=== PATIENT | male | born 1940 | race Caucasian/White ===

== ENCOUNTER 2021-06-21 08:36 | Inpatient (IN) ==
[2021-06-21] MEDS ORDERED: levoFLOXacin 500 MG/100 ML 500 MG/100 ML BAG IVPB ONE (09:02)
[2021-06-21] MEDS ORDERED: Ringers Solution, Lactated 1,000 ML IVC SCH (09:15)
[2021-06-21] MEDS ORDERED: 0.9 % Sodium Chloride 500 ML IVC SCH (09:45)
[2021-06-21] MEDS ORDERED: Ondansetron 4 MG/2 ML VIAL IVP PRN ×2 (09:46→16:46)
[2021-06-21] MEDS ORDERED: *HR* Propofol 200 MG/20 ML VIAL IVP ONE (10:22)
[2021-06-21] MEDS ORDERED: *HR* Rocuronium Bromide 50 MG/5 ML VIAL ONE ×3 (10:22→14:11)
[2021-06-21] MEDS ORDERED: Ondansetron 4 MG/2 ML VIAL ONE (10:22)
[2021-06-21] MEDS ORDERED: Lidocaine HCL 4 ML Topical Solution (Laryng-O-Jet Kit Sterile Pak) TP ONE (10:22)
[2021-06-21] MEDS ORDERED: Lidocaine -MPF 2% 2 ML VIAL ONE (10:22)
[2021-06-21] MEDS ORDERED: *HR* FentaNYL (PF) 100 MCG/2 ML VIAL ONE ×2 (10:23→11:21)
[2021-06-21] MEDS ORDERED: Bupivacaine/EPI 1:200k 0.25% 50 ML VIAL ONE (10:31)
[2021-06-21] MEDS ORDERED: EPHEDrine 50 MG/ML VIAL ONE (11:07)
[2021-06-21] MEDS: *HR* HYDROmorphone PF 0.5 MG/0.5 ML SYRINGE IVP PRN ×2 (15:26→15:36)
[2021-06-21] MEDS ORDERED: *HR* Belladonna Alkaloids/Opium 30 MG RECTAL SUPPOSITORY RC PRN (16:46)
[2021-06-21] MEDS ORDERED: Dextrose Gel 15 GM/37.5 ML TUBE PO PRN ×2 (16:46)
[2021-06-21] MEDS ORDERED: *HR* OxyCODONE Immed Rel 5 MG TABLET PO PRN (16:46)
[2021-06-21] MEDS ORDERED: *HR* HYDROcodone/Acet 5/325 mg TABLET PO PRN (16:46)
[2021-06-21] MEDS ORDERED: D5% in Water 1,000 ML IVC PRN (16:46)
[2021-06-21] MEDS ORDERED: Naloxone 0.4 MG/ML INJ IVP PRN (16:46)
[2021-06-21] MEDS ORDERED: *HR* Dextrose 50 % in Water (Syg) 50 ML SYRINGE IVP PRN (16:46)
[2021-06-21] MEDS: Acetaminophen IV 1,000 MG/100 ML BAG IVPB SCH ×2 (17:40→23:17)
[2021-06-21] MEDS: CeFAZolin 2 GM/120 ML BAG IVPB SCH (17:40)
[2021-06-21] MEDS: 0.9 % Sodium Chloride 1,000 ML IVC SCH (17:43)
[2021-06-21] MEDS: Insulin LISPRO 300 UNITS/3 ML VIAL SUBQ SCH (18:05)
[2021-06-22 01:04] LABS: Basophils % 0.1 %; Hematocrit 36.6 % (37.5-50.1); Hemoglobin 12.4 g/dL (12.9-16.9); Immature Granulocytes % 0.4 % (0-4); Lymphocytes # 0.6 K/mcL (0.6-4.6); Mean Corpuscular HGB Conc 33.9 g/dL (31.6-35.5); Mean Corpuscular Volume 88.4 fL (83.0-100.0); Mean Platelet Volume 9.6 fL (9.4-12.4); Monocytes # 0.6 K/mcL (0.0-1.3); Monocytes % 5.3 %; Platelet Count 197 K/mcL (140-400); Red Blood Count 4.14 M/mcL (4.19-5.50); Red Cell Distribution Width 12.7 % (11.5-14.5); Segmented Neutrophils % 88.2 %
[2021-06-22 01:08] LABS: Neutrophils # 9.3 K/mcL (1.6-8.9); White Blood Count 10.5 K/mcL (4.3-11.1)
[2021-06-22 01:19] LABS: Calcium 8.4 mg/dL (8.6-10.3); Potassium 4.9 mEq/L (3.5-5.1)
[2021-06-22] MEDS: CeFAZolin 2 GM/120 ML BAG IVPB SCH (02:05)
[2021-06-22] MEDS: 0.9 % Sodium Chloride 1,000 ML IVC SCH (07:52)
[2021-06-22] MEDS: Insulin LISPRO 300 UNITS/3 ML VIAL SUBQ SCH ×2 (08:53→12:15)
[2021-06-22] MEDS: Acetaminophen IV 1,000 MG/100 ML BAG IVPB SCH (08:53)
[2021-06-22] MEDS ORDERED: lisinopriL 20 MG TABLET PO SCH (09:00)
[2021-06-22 11:32] VITALS: BP 176/72; PULSE 72; TEMP 97.3; O2SAT 97
== END 2021-06-22 16:26 | disposition home or self-care (01) | DRG 658 ==
LOC: SAMDAY 08:36 → 3ANU 15:35
PROVIDERS: ADMIT Urology; ATTEND Urology